=== PATIENT | male | born 1950 | race Caucasian/White ===

== ENCOUNTER 2023-11-13 18:07 | Inpatient (IN) | payer MEDICARE, OTHER ==
[~2023-11-13] VITALS: Ht 170.2 cm; Wt 67.6 kg
[2023-11-13] MEDS ORDERED: CHLO25TA2 PO (18:27)
[2023-11-13] MEDS ORDERED: CLOP75TA15 PO (18:27)
[2023-11-13] MEDS ORDERED: LISI10TA29 PO (18:27)
[2023-11-13] MEDS ORDERED: DIVA125C5 PO (18:27)
[2023-11-13 19:20] LABS: BASOPHILS % (AUTO) 0.5 % (0.0-2.0); EOSINOPHILS # (AUTO) 0.1 K/uL (0.0-0.7); EOSINOPHILS % (AUTO) 1.4 % (0.0-6.0); HEMATOCRIT 46 % (39-51); HEMOGLOBIN 15.6 g/dL (13.5-17.5); LYMPHOCYTES # (AUTO) 1.8 K/uL (0.8-4.8); LYMPHOCYTES % (AUTO) 24.2 % (20.0-44.0); MEAN CORPUSCULAR HEMOGLOBIN 29 PG (26.0-33.0); MEAN CORPUSCULAR HGB CONC 34 g/dl (31.0-36.0); MEAN CORPUSCULAR VOLUME 86 fL (80-96); MONOCYTES # (AUTO) 0.8 K/uL (0.1-1.30); MONOCYTES % (AUTO) 10.1 % (2.0-12.0); NEUTROPHILS # (AUTO) 4.8 K/uL (1.8-8.9); NEUTROPHILS % (AUTO) 63.8 % (43.0-81.0); PLATELET COUNT (AUTO) 253 K/uL (150-450); RED CELL DISTRIBUTION WIDTH 13.9 % (11.5-15.0); WHITE BLOOD COUNT (AUTO) 7.5 K/uL (4.3-11.0)
[2023-11-13 19:41] LABS: CALCIUM, SERUM 8.9 mg/dL (8.5-10.1); CARBON DIOXIDE 29 mmol/L (21-32); CHLORIDE 97 mmol/L (98-107); CREATININE 1.2 mg/dL (0.6-1.3); GLUCOSE 103 mg/dL (74-106); POTASSIUM 3.9 mmol/L (3.5-5.1); SODIUM SERUM 132 mmol/L (136-145); UREA NITROGEN, BLOOD 31 mg/dL (7-18)
[2023-11-13 19:45] LABS: ALBUMIN 3.6 g/dL (3.4-5.0); ALCOHOL, BLOOD < 3 mg/dL (0-10); ALKALINE PHOSPHATASE 84 U/L (46-116); ASPARTATE AMINOTRANSFERASE 21 U/L (15-37); BILIRUBIN,DIRECT 0.2 mg/dL (0.0-0.2); BILIRUBIN,TOTAL 0.4 mg/dL (0.2-1.0); TOTAL PROTEIN, SERUM 8.2 g/dL (6.4-8.2)
[2023-11-13 19:47] LABS: ACETAMINOPHEN <10 ug/ml (10-30); SALICYLATE 1.5 mg/dL (2.8-20.0)
[2023-11-13 19:56] LABS: APPEARANCE,URINE Clear (CLEAR); BILIRUBIN,URINE Negative (NEGATIVE); BLOOD, URINE Moderate Ery/uL (NEGATIVE); COLOR,URINE YELLOW (YELLOW); KETONES,URINE Negative (NEGATIVE); LEUKOCYTE ESTERASE ,URINE Negative (NEGATIVE); NITRITE, URINE Negative (NEGATIVE); PH,URINE 6.5 (5.0-8.0); PROTEIN,URINE Negative (NEGATIVE); UGLUCOSE Negative (NEGATIVE); UROBILINOGEN,URINE 0.2 EU/dL (0.2)
[2023-11-13 20:00] LABS: ALANINE AMINOTRANSFERASE 35 U/L (12-78)
[2023-11-13 20:01] LABS: AMPHETAMINE, URINE NEGATIVE (NEGATIVE); BARBITURATE, URINE NEGATIVE (NEGATIVE); BENZODIAZEPINE, URINE NEGATIVE (NEGATIVE); CANNABINOID, URINE NEGATIVE (NEGATIVE); COCCAINE, URINE NEGATIVE (NEGATIVE); OPIATE, URINE NEGATIVE (NEGATIVE); PHENCYCLIDINE SCREEN,URINE NEGATIVE (NEGATIVE)
[2023-11-13 20:05] LABS: ADD URINE CULTURE NO; BACTERIA,URINE None seen /HPF (None Seen); SQUAMOUS EPITHELIAL CELL,UR None Seen /HPF (None Seen); WBC,URINE 0-2 /HPF (0-3)
[2023-11-14] MEDS ORDERED: MAGNESIUM HYDROXIDE 30 ML UDC PO PRN (02:00)
[2023-11-14] MEDS ORDERED: ZOLPIDEM TARTRATE 5 MG TABLET PO PRN (02:00)
[2023-11-14] MEDS ORDERED: ACETAMINOPHEN 325 MG TABLET PO PRN (02:00)
[2023-11-14] MEDS ORDERED: LORAZEPAM 0.5 MG TABLET PO PRN (02:00)
[2023-11-14] MEDS ORDERED: MAG HYDROX/AL HYDROX/SIMETH 30 ML UDC PO PRN (02:00)
[2023-11-14] MEDS: BLOOD SUGAR DIAGNOSTIC 1 EACH STRIP IN ONE (02:09)
[2023-11-14 03:17] VITALS: BP 137/59; TEMP 97.7; O2SAT 99
[2023-11-14] MEDS ORDERED: DIVA500T2 PO (05:35)
[2023-11-14 07:51] LABS: ALBUMIN 3.2 g/dL (3.4-5.0); BILIRUBIN,TOTAL 0.6 mg/dL (0.2-1.0); CALCIUM, SERUM 9.1 mg/dL (8.5-10.1); CHOLESTEROL 173 mg/dL (<200); CREATININE 1.1 mg/dL (0.6-1.3); HDL CHOLESTEROL 50 mg/dL (40-60); LDL 114 mg/dL (0-99); POTASSIUM 3.6 mmol/L (3.5-5.1); TOTAL PROTEIN, SERUM 7.7 g/dL (6.4-8.2); TRIGLYCERIDES 38 mg/dL (30-150)
[2023-11-14 08:00] VITALS: BP_SYST 132; BP_SYST 149; BP_DIAS 105; BP_DIAS 76; TEMP 97.7; TEMP 97.8; O2SAT 96; O2SAT 97
[2023-11-14] MEDS: CLOPIDOGREL BISULFATE 75 MG TABLET PO SCH (08:41)
[2023-11-14] MEDS ORDERED: DIVALPROEX SODIUM 125 MG CAP.SPRINK PO SCH (09:00)
[2023-11-14] MEDS: DIVALPROEX SODIUM 125 MG CAP.SPRINK PO SCH (10:00)
[2023-11-14] MEDS ORDERED: LORAZEPAM 1 MG TABLET PO PRN (10:00)
[2023-11-14 16:00] VITALS: BP 132/70; TEMP 97.7; O2SAT 98
[2023-11-14] MEDS: LISINOPRIL (10MG) 10 MG TABLET PO SCH (17:02)
[2023-11-14] MEDS: QUETIAPINE FUMARATE 25 MG TABLET PO SCH (21:20)
[2023-11-15 08:00] VITALS: BP 137/87; TEMP 98.1; O2SAT 98
[2023-11-15] MEDS ORDERED: HYDROCHLOROTHIAZIDE 25 MG TABLET PO SCH (09:00)
[2023-11-15 16:00] VITALS: BP 100/63; TEMP 97.8; O2SAT 100
[2023-11-15 20:00] VITALS: BP 99/62; TEMP 97.9; O2SAT 100
[2023-11-16 08:00] VITALS: BP 132/70; TEMP 97.6; O2SAT 99
[2023-11-16 16:00] VITALS: BP 126/56; TEMP 98.6; O2SAT 99
[2023-11-16 20:00] VITALS: BP 123/58; TEMP 98.5; O2SAT 99
[2023-11-17 08:00] VITALS: BP 107/65; TEMP 97.8; O2SAT 98
[2023-11-17 16:00] VITALS: BP 124/80; TEMP 97.8; O2SAT 98
[2023-11-17 20:00] VITALS: BP 118/84; TEMP 98.3; O2SAT 98
[2023-11-18 16:53] VITALS: BP 141/75; TEMP 98.6; O2SAT 100
[2023-11-18 20:00] VITALS: BP 127/66; TEMP 98.3; O2SAT 99
[2023-11-19 08:00] VITALS: BP 110/56; TEMP 98.1; O2SAT 99
[2023-11-19 16:00] VITALS: BP 123/60; TEMP 97.4; O2SAT 96
[2023-11-19 20:45] VITALS: BP 127/69; TEMP 97.2; O2SAT 97
[2023-11-20 08:00] VITALS: BP 119/58; TEMP 98.6; O2SAT 98
[2023-11-20 16:00] VITALS: BP 127/87; TEMP 98.1; O2SAT 97
[2023-11-20 20:43] VITALS: BP 125/58; TEMP 97.9; O2SAT 98
[2023-11-21 08:00] VITALS: BP 110/63; TEMP 97.8; O2SAT 96
[2023-11-21 16:07] VITALS: BP 114/80; TEMP 97.9; O2SAT 95
[2023-11-21 20:44] VITALS: BP 120/70; TEMP 98.2; O2SAT 97
[2023-11-22 08:00] VITALS: BP 112/59; TEMP 98.7; O2SAT 98
[2023-11-22 16:00] VITALS: BP 128/68; TEMP 98.7; O2SAT 98
[2023-11-22 21:09] VITALS: BP 126/52; TEMP 98.6; O2SAT 94
[2023-11-23 08:00] VITALS: BP 115/65; TEMP 98.6; O2SAT 98
== END 2023-11-23 14:50 | DRG 885 ==
LOC: ER 18:13 → GPS 11-14 01:03
PROVIDERS: ADMIT Psychiatry & Neurology Psychiatry; ATTEND Nurse Practitioner Acute Care
DX: F39 Unspecified mood [affective] disorder (principal); E87.1 Hypo-osmolality and hyponatremia; I69.354 Hemiplegia and hemiparesis following cerebral infarction affecting left non-dominant side; F03.93 Unspecified dementia, unspecified severity, with mood disturbance; F29 Unspecified psychosis not due to a substance or known physiological condition; I10 Essential (primary) hypertension; Z79.899 Other long term (current) drug therapy; Z79.02 Long term (current) use of antithrombotics/antiplatelets; Z85.828 Personal history of other malignant neoplasm of skin; Z20.822 Contact with and (suspected) exposure to COVID-19; Z73.6 Limitation of activities due to disability
CPT/HCPCS: 36415; 80048-TC; 80053-TC; 80061-TC; 80076-TC; 80164-TC; 81001; 82962-TC; 85025-TC; 87081-TC; 97116-TC; 97530-TC; G0480